=== PATIENT | female | born 1935 | race Caucasian/White ===

== ENCOUNTER → 2021-02-02 | Outpatient (CLI) | payer MEDICARE ==
[~2021-02-02] MED LIST: ASPIRIN EC81 MG PO; ELIQUIS2.5 MG PO; FISH OIL 1,0001 EACH PO; FLAGYL500 MG PO; FUROSEMIDE20 MG PO; KLONOPIN TAB 00.5 MG PO; LEVAQUIN500 MG PO; LIORESAL TAB 1010 MG PO; LISINOPRIL20 MG PO; LORTAB 5-325 M1 EACH PO; METHENAMINE HIPP1 GM PO; METROCREAM 0.7545 GM EXT; MULTILEX-T-M W1 EACH PO; NEXIUM 24HR22.3 MG PO; SIMVASTATIN20 MG PO; SOTALOL80 MG PO; VITAMIN C 500500 MG PO; ZYLOPRIM 100 M100 MG PO; ZYRTEC10 M3 PO
== END ==
LOC: RAD 15:26
DX: M54.5 Low back pain (principal); M51.36 Other intervertebral disc degeneration, lumbar region; W19.XXXA Unspecified fall, initial encounter
CPT/HCPCS: 72110

== ENCOUNTER → 2021-12-30 | Outpatient (CLI) | payer MEDICARE | LOC: HEART 5 10:54 | DX: I50.22 Chronic systolic (congestive) heart failure (principal); R06.02 Shortness of breath; I08.1 Rheumatic disorders of both mitral and tricuspid valves | CPT/HCPCS: 93306 ==

== ENCOUNTER → 2022-01-21 | Outpatient (CLI) | payer MEDICARE | LOC: RAD 16:16 | DX: R07.9 Chest pain, unspecified (principal); I50.9 Heart failure, unspecified | CPT/HCPCS: 71046 ==